=== PATIENT | male | born 1950 | race Caucasian/White ===

== ENCOUNTER 2020-03-23 22:20 | Emergency (ER) | payer MEDICARE, BC ==
[2020-03-23] MEDS ORDERED: Sodium Chloride 0.9% 10 ML Syringe FLUSH PRN (22:27)
[2020-03-23] MEDS ORDERED: Lactated Ringers 1,000 ML IV ONE (22:28)
[2020-03-23] MEDS ORDERED: Metoclopramide 10 MG/2 ML SDV IVPUSH ONE (22:32)
--- NOTE | 2020-03-23 22:50 | EDM.PDOC ---
ED HPI GENERAL MEDICAL PROBLEM - General Chief Complaint: Gastrointestinal Problem Stated Complaint: Diarrhea Time Seen by Provider: 03/23/20 22:27 Source of Information: Reports: Patient - History of Present Illness INITIAL COMMENTS - FREE TEXT/NARRATIVE: Travis is a 70 y/o male who comes to the ER tonight with a 14 day history of diarrhea stools. He reports that these stools are small and watery and occur anywhere from every 20 minutes to 2 1/2 hours. He denies and nausea or vomiting. He reports he has been eating and drinking without any difficulty, in fact today he reports drinking 3 quarts of milk. No fever. He has not used any OTC meds for the diarrhea. Reports had a colonoscopy a year ago and there was no abnormalities. He sees Dr Wily Dexter at [facility]. He has not contacted his PCP regarding his sx. - Related Data Allergies Allergy/AdvReac Type Severity Reaction Status Date / Time No Known Allergies Allergy Verified 03/23/20 23:13 Home Meds: Home Meds Atropine/Diphenoxylate [Diphenoxylate-Atropine] 1 tab PO QID PRN 3 Days #10 tab 03/23/20 [Rx] Tamsulosin HCl 1 cap PO DAILY 03/23/20 [History] Review of Systems - Review of Systems Review Of Systems: See Below Constitutional: Reports: No Symptoms Eyes: Reports: No Symptoms Ears: Reports: No Symptoms Nose: Reports: No Symptoms Mouth/Throat: Reports: No Symptoms Respiratory: Reports: No Symptoms Cardiovascular: Reports: No Symptoms GI/Abdominal: Reports: Diarrhea. Denies: Abdominal Pain, Nausea, Vomiting Genitourinary: Reports: No Symptoms Musculoskeletal: Reports: No Symptoms Skin: Reports: No Symptoms Neurological: Reports: No Symptoms Psychiatric: Reports: No Symptoms ED EXAM, GENERAL - Physical Exam Exam: See Below General Appearance: Alert, WD/WN, No Apparent Distress (Elderly male.) Eye Exam: Bilateral Eye: PERRL Ears: Hearing Grossly Normal, Normal TMs Nose: Normal Inspection, Normal Mucosa Throat/Mouth: Normal Inspection, Normal Lips, Normal Voice Head: Atraumatic, Normocephalic Neck: Normal Inspection, Supple Respiratory/Chest: No Respiratory Distress, Lungs Clear, Chest Non-Tender Cardiovascular: Regular Rate, Rhythm GI/Abdominal: Normal Bowel Sounds, Soft, Non-Tender, No Organomegaly, No Distention (Male) Exam: Deferred Rectal (Males) Exam: Deferred Back Exam: Normal Inspection Extremities: Normal Inspection, Normal Range of Motion, Normal Capillary Refill Neurological: Alert, Oriented, CN II-XII Intact, Normal Cognition, No Motor/Sensory Deficits Psychiatric: Normal Affect, Normal Mood Skin Exam: Warm, Dry, Intact, Normal Color, No Rash Lymphatic: No Adenopathy Course - Vital Signs Text/Narrative:: 2226 The patient was seen by the [facility]. Labs ordered. He was given LR 1 liter and Reglan 10mg IVP. 2327 Labs reviewed. BUN=38. CBC neg, COVID neg. IV fluids given and patient was able to void. He was up to the bathroom for a diarrhea stool. Lomotil x 2 tabs ordered. Lab results discussed with patient. Will discharge him to home with a Lomotil rx. I sx not improving in the next 2-3 days, he will need to see his PCP. He was given written discharge instructions and left the ER in stable condition. - Orders/Labs/Meds Orders: Active Orders 24 hr Category Date Time Status UA W/BOO RFLX IF INDICATED [URIN] Stat Lab 03/23/20 22:27 Ordered Atropine/Diphenoxylate [Lomotil 0.025-2.5 MG] Med 03/23/20 23:18 Once 2 tab PO ONETIME ONE Lactated Ringers [Ringers, Lactated] 1,000 ml Med 03/23/20 22:28 Active IV ONETIME Sodium Chloride 0.9% [Saline Flush] Med 03/23/20 22:27 Active 10 ml FLUSH ASDIRECTED PRN Saline Lock Insert [OM.PC] Stat Oth 03/23/20 22:27 Ordered Medication Orders Lactated Ringer's (Ringers, Lactated) 1,000 mls @ 999 mls/hr IV ONETIME ONE Stop: 03/23/20 23:28 Last Admin: 03/23/20 22:52 Dose: 999 mls/hr Documented by: CHRIS Sodium Chloride (Saline Flush) 10 ml FLUSH ASDIRECTED PRN PRN Reason: Keep Vein Open Labs: Laboratory Tests 03/23/20 03/23/20 03/23/20 Range/Units 22:27 22:45 22:45 WBC 5.9 (4.0-10.0) x10^3/uL RBC 4.88 (4.5-6.0) x10^6/uL Hgb 14.0 (14.0-18.0) g/dL Hct 42.7 (40.0-52.0) % MCV 87.5 (78.0-93.0) fL MCH 28.7 (26.0-32.0) pg MCHC 32.8 (32.0-36.0) g/dL RDW Coeff of Anil 14.9 (10.0-15.0) % Plt Count 269 (130-400) x10^3/uL Neut % (Auto) 65.6 (50.0-80.0) % Lymph % (Auto) 18.5 L (25.0-50.0) % Traverse % (Auto) 12.9 H (2.0-11.0) % Eos % (Auto) 2.5 (0.0-4.0) % Baso % (Auto) 0.5 (0.2-1.2) % Sodium 140 (136-145) mmol/L Potassium 4.2 (3.5-5.1) mmol/L Chloride 103 (98-107) mmol/L Carbon Dioxide 27 (21-32) mmol/L Anion Gap 14.2 (10-20) mmol/L BUN 38 H (7-18) mg/dL Creatinine 1.1 (0.70-1.30) mg/dL Est Cr Clr Drug Dosing TNP Estimated GFR (MDRD) > 60 Glucose 92 (74-106) mg/dL Calcium 9.3 (8.5-10.1) mg/dL Corrected Calcium 9.62 (8.5-10.1) mg/dL Magnesium 2.0 (1.8-2.4) mg/dL Total Bilirubin 0.3 (0.2-1.0) mg/dL AST 23 (15-37) U/L ALT 36 (16-63) U/L Alkaline Phosphatase 83 (46-116) U/L Total Protein 7.6 (6.4-8.2) g/dL Albumin 3.6 (3.4-5.0) g/dL Globulin 4.0 Albumin/Globulin Ratio 0.90 SARS CoV-2 RNA Rapid ARMAND Negative (NEGATIVE) Meds: Medications Generic Name Dose Route Start Last Admin Trade Name Johannq PRN Reason Stop Dose Admin Lactated Ringer's 1,000 mls @ 999 mls/hr 03/23/20 22:28 03/23/20 22:52 Ringers, Lactated IV 03/23/20 23:28 999 mls/hr ONETIME ONE Administration Sodium Chloride 10 ml 03/23/20 22:27 Saline Flush FLUSH ASDIRECTED PRN Keep Vein Open Discontinued Medications Generic Name Dose Route Start Last Admin Trade Name Thony PRN Reason Stop Dose Admin Metoclopramide HCl 10 mg 03/23/20 22:32 03/23/20 22:52 Reglan IVPUSH 03/23/20 22:33 10 mg ONETIME ONE Administration Departure - Departure Time of Disposition: 23:30 Disposition: Home, Self-Care 01 Condition: Good Clinical Impression: Diarrhea Diarrhea Qualifiers: Diarrhea type: unspecified type Qualified Code(s): R19.7 - Diarrhea, unspecified - Discharge Information *PRESCRIPTION DRUG MONITORING PROGRAM REVIEWED*: No Prescriptions: Atropine/Diphenoxylate [Diphenoxylate-Atropine] 1 tab PO QID PRN 3 Days #10 tab PRN Reason: Diarrhea Instructions: Diarrhea, Adult Referrals: PCP,Unobtain [Primary Care Provider] - Forms: ED Department Discharge Additional Instructions: -Lomotil 1 tablet oral every 6 hours as needed for diarrhea #10(Rx) -Avoid dairy products. Eat a bland diet. -Drink clear fluids including water, sports drinks, teas. -If your symptoms do not resolve in the next 2-3 days, you need to call your PCP to make an appointment and may need further diagnostic testing that is not done in the ER. -Return to the ER as needed. - My Orders Last 24 Hours: My Active Orders 03/23/20 22:27 UA W/BOO RFLX IF INDICATED [URIN] Stat Sodium Chloride 0.9% [Saline Flush] 10 ml FLUSH ASDIRECTED PRN Saline Lock Insert [OM.PC] Stat 03/23/20 22:28 Lactated Ringers [Ringers, Lactated] 1,000 ml IV ONETIME 03/23/20 23:18 Atropine/Diphenoxylate [Lomotil 0.025-2.5 MG] 2 tab PO ONETIME ONE - Assessment/Plan Last 24 Hours: My Active Orders 03/23/20 22:27 UA W/BOO RFLX IF INDICATED [URIN] Stat Sodium Chloride 0.9% [Saline Flush] 10 ml FLUSH ASDIRECTED PRN Saline Lock Insert [OM.PC] Stat 03/23/20 22:28 Lactated Ringers [Ringers, Lactated] 1,000 ml IV ONETIME 03/23/20 23:18 Atropine/Diphenoxylate [Lomotil 0.025-2.5 MG] 2 tab PO ONETIME ONE
[2020-03-23 23:17] LABS: CHLORIDE,CL 103 mmol/L (98-107); SODIUM,NA 140 mmol/L (136-145)
[2020-03-23 23:18] LABS: ANION GAP 14.2 mmol/L (10-20)
[2020-03-23] MEDS ORDERED: Atropine/Diphenoxylate 0.025-2.5 MG Tab PO ONE (23:18)
[2020-03-23] MEDS ORDERED: Loperamide 2 MG Cap PO ONE (23:45)
== END 2020-03-23 23:49 | disposition home or self-care (01) ==
LOC: VM.ED 22:20
DX: R19.7 Diarrhea, unspecified (principal); Z20.828 Contact with and (suspected) exposure to other viral communicable diseases
CPT/HCPCS: 36415; 80053; 83735; 85025; 96374; 99283; 99284-25; A9270-GY; J2765; J7120; U0002

== ENCOUNTER 2022-09-16 16:28 | Emergency (ER) | payer MEDICARE, BC ==
[2022-09-16 17:01] LABS: BASOPHILS PERCENT AUTO 0.7 % (0.2-1.2); EOSINOPHILS ABSOLUTE AUTO 0.2 x10^3/uL (0.0-0.5); EOSINOPHILS PERCENT AUTO 4.3 % (0.0-4.0); HEMATOCRIT 40.7 % (40.0-52.0); HEMOGLOBIN 13.7 g/dL (14.0-18.0); IMMATURE GRAN ABSOLUTE AUTO 0.01 x10^3/uL (0.00-0.07); LYMPHOCYTES ABSOLUTE AUTO 1.1 x10^3/uL (1.0-4.8); LYMPHOCYTES PERCENT AUTO 24.9 % (25.0-50.0); MEAN CORPUSCULAR HEMOGLOBIN 31.2 pg (26.0-32.0); MEAN CORPUSCULAR HGB CONC 33.7 g/dL (32.0-36.0); MEAN CORPUSCULAR VOLUME 92.7 fL (78.0-93.0); MONOCYTES ABSOLUTE AUTO 0.6 x10^3/uL (0.0-0.8); NEUTROPHILS ABSOLUTE AUTO 2.4 x10^3/uL (1.8-7.7); NEUTROPHILS PERCENT AUTO 55.9 % (50.0-80.0); PLATELET COUNT,PLT 194 x10^3/uL (130-400); RED BLOOD CELL COUNT 4.39 x10^6/uL (4.5-6.0); WHITE BLOOD CELL COUNT,WBC 4.4 x10^3/uL (4.0-10.0)
[2022-09-16 17:20] LABS: A/G RATIO 1.06; ALANINE AMINOTRANSFERASE,ALT 36 U/L (16-63); ALBUMIN 3.4 g/dL (3.4-5.0); ALKALINE PHOSPHATASE 72 U/L (46-116); ANION GAP 12.3 mmol/L (5-15); ASPARTATE AMNIOTRANSFERASE,AST 20 U/L (15-37); BILIRUBIN TOTAL 0.6 mg/dL (0.2-1.0); BLOOD UREA NITROGEN,BUN 24 mg/dL (7-18); C-REACTIVE PROTEIN 0.09 mg/dL (<=0.30); CALCIUM 8.4 mg/dL (8.5-10.1); CARBON DIOXIDE,CO2 29 mmol/L (21-32); CHLORIDE,CL 105 mmol/L (98-107); CREATININE 0.7 mg/dL (0.70-1.30); ESTIMATED GFR 97 mL/min (>=60); GLUCOSE RANDOM 75 mg/dL (70-99); MAGNESIUM 1.8 mg/dL (1.8-2.4); POTASSIUM,K 4.3 mmol/L (3.5-5.1); PROTEIN TOTAL,TP 6.6 g/dL (6.4-8.2); SODIUM,NA 142 mmol/L (136-145)
[2022-09-16 18:25] LABS: APPEARANCE,URINE CLEAR (CLEAR); BILIRUBIN,URINE NEGATIVE (NEGATIVE); COLOR,URINE YELLOW (YELLOW); GLUCOSE,URINE NEGATIVE (NEGATIVE); KETONES,URINE NEGATIVE (NEGATIVE); LEUKOCYTE ESTERASE,URINE NEGATIVE (NEGATIVE); NITRITE,URINE NEGATIVE (NEGATIVE); OCCULT BLOOD,URINE NEGATIVE (NEGATIVE); PH,URINE 7.5 (5.0-8.0); PROTEIN,URINE NEGATIVE (NEGATIVE)
== END 2022-09-16 18:40 | disposition home or self-care (01) ==
LOC: VM.ED 16:28
DX: M62.449 Contracture of muscle, unspecified hand (principal); Z87.891 Personal history of nicotine dependence; Z79.899 Other long term (current) drug therapy
CPT/HCPCS: 36415; 70450; 72125; 80053; 81003; 83735; 84484; 85025; 86140; 93005; 93010; 99284